=== PATIENT | female | born 1935 | race Caucasian/White ===

== ENCOUNTER 2018-11-26 14:00 | Inpatient (IN) | payer MEDICARE, BC ==
[~2018-11-26] VITALS: Ht 152.4 cm; Wt 69.4 kg
--- NOTE | 2018-11-26 14:00 | NUR ---
ARRIVED TO INTERMEDIATE UNIT AT [facility] FROM [facility]. PATIENT HAS BEEN SEEING THINGS, THINKS HER DECEISED 'S PICTURE IS TAKING TO HER. HER MAY, OF THIS YEAR. SHE DOES NOT LIKE TO BE ALONE. SHE NOW LIVES IN [facility]. PATIENT IS ALERT AND ORIENTED TO NAME, PLACE, TIME. SHE DOES NOT UNDERSTAND WHY SHE IS HERE. SHE STATES SHE IS A DNR FOR CODE STATUS. CODE WORD: AUGUSTINE. HER DAUGHTER'S NEED TO BE CALLED AND GIVEN CODE, PATIENT GAVE PERMISSION. HER DOCTOR IS DR. URI MADERA.
[2018-11-26] MEDS ORDERED: ATIVAN0.5 MG (18:38)
[2018-11-26] MEDS ORDERED: ALEVE220 MG PO ×2 (18:42→18:54)
[2018-11-26] MEDS ORDERED: VITAMIN D3400 UNI1 PO (18:50)
[2018-11-26] MEDS ORDERED: UNITHROID100 MCG (18:51)
[2018-11-26] MEDS ORDERED: CALCIUM 250+D T1 TAB PO (18:52)
[2018-11-26] MEDS ORDERED: ALEVE220 MG (18:55)
--- NOTE | 2018-11-26 23:29 | NUR ---
PATIENT IS CONFUSED, COOPERATIVE, NO MEDS GIVEN ON THIS SHIFT. WILL FOLLOW POC
[2018-11-27 02:48] VITALS: BP 139/78; BMI 24.7
[2018-11-27 06:12] LABS: BASOPHILS 0.2 % (0-2); EOSINOPHILS 2.2 % (0-7); HEMATOCRIT 38.9 % (36.0-48.0); HEMOGLOBIN 12.9 g/dL (12-16); IMMATURE GRANULOCYTES 0.2 % (0-5); LYMPHOCYTES 46.2 % (15-50); MCH 28.7 pg (26.0-34.0); MCHC 33.2 g/dL (31.0-37.0); MCV 86.4 fL (80.0-100.0); MEAN PLATELET VOLUME 9.3 fL (7.4-10.4); MONOCYTES 8.8 % (2-11); NEUTROPHILS 42.4 % (40-80); PLATELET COUNT 218 10x3/uL (130-400); RDW 12.3 % (11.5-14.5); WBC 5.8 10x3/uL (4.8-10.8)
[2018-11-27 07:30] LABS: ALBUMIN 3.2 g/dL (3.4-5.0); ALKALINE PHOSPHATASE 75 U/L (46-116); ALT (SGPT) 14 U/L (10-68); CALC OSMOLALITY 285 mosm/kg (275-300); CALCIUM 8.9 mg/dL (8.5-10.1); CARBON DIOXIDE 30.5 mmol/L (21.0-32.0); CHLORIDE - SERUM 107 mmol/L (98-107); CHOL - HDL RATIO 2.8 ratio (2.3-4.1); CHOLESTEROL, TOTAL 176 mg/dL (0-200); CREATININE - SERUM 0.7 mg/dL (0.6-1.3); GLUCOSE 99 mg/dL (74-106); HDL CHOLESTEROL 63 mg/dL (32-96); LDL CHOLESTEROL 95 mg/dL (0-100); LDL-HDL RATIO 1.5 ratio (1.5-3.5); POTASSIUM - SERUM 4.1 mmol/L (3.5-5.1); PROTEIN - SERUM 6.1 g/dL (6.4-8.2); SODIUM 142 mmol/L (136-145); THYROID STIMULATING HORMONE 0.39 uIU/mL (0.36-3.74); TRIGLYCERIDE 92 mg/dL (30-200); UREA NITROGEN 20 mg/dL (7-18); eGFR NON AFRICAN AMERICAN 85 mL/min (90-120)
[2018-11-27 09:12] VITALS: BMI 24.7
[2018-11-27 09:55] VITALS: BMI 24.7
[2018-11-27 10:44] VITALS: BP 132/69
--- NOTE | 2018-11-27 14:10 | NUR ---
PATIENT DISCHARGED TO [facility] THIS SHIFT. PATIENT WAS IN GOOD MOOD AND HELPFUL. WILL FAX PAPERWORK TO FACILITY. MEDICATION LIST SENT WITH PATIENT.
--- NOTE | 2018-11-27 14:36 | NUR ---
SW SPOKE TO BOTH OF PT'S DTRS WITHIN AN HOUR OF EACH OTHER. CARTER STATED PSYCHIATRIST REPORTED PT DOES NOT MEET INPATIENT CRITERIA. SW GAVE DTRS BOTH RESOURCES FOR RECOMMENDED OUTPATIENT TREATMENT. CARTER GAVE DR FORTUNE AND OBW OUTPATIENT INFORMATION. BOTH DTRS VERBALIZED UNDERSTANDING.
[2018-11-27 16:39] VITALS: Ht 152.4 cm; Wt 69.4 kg
--- NOTE | 2018-11-28 15:14 | PSY ---
PATIENT NAME:JOE VASQUEZ MEDICAL RECORD: [id number] : 35 LOCATION:[id number] ADMISSION DATE: 11/26/18 ACCOUNT: [id number] PSYCHIATRIC EVALUATION DATE OF EVALUATION: 11/27/18 PSYCHIATRIC EVALUATION IDENTIFYING DATA: The patient is 83 years old and she is admitted to the hospital on a voluntary basis. CHIEF COMPLAINT: None. HISTORY OF PRESENT ILLNESS: The patient is referred to us by the [facility]. They indicate that she has been acting bizarrely. Apparently, the patient's in May. She says they were for 65 years, which would have made her 18 when they . He has and he in May as I mentioned. Since then, she has been understandably distressed and depressed. Her primary care doctor has put her on Ativan to help with some anxiety. The staff at the intermediate say that she has been talking to a picture of her as though he were alive and that someone saw her trying to feed the food to the picture. She emphatically denies that this happened. She lives in an independent housing area of this particular intermediate and I presume that is with the intention that, as time passes, if necessary, she can be transitioned to a higher level of care. She also is somewhat angry. She says that the staff at the intermediate told her that her primary care physician, Dr. Mora, ordered some lab work and that they needed to go and have that done. She says no one told her that she was being admitted to the hospital, let alone a psychiatric unit, and that she does not want to be here and would like to be discharged. Even though she is angry, it is reasonable, understandable, and controlled. She says she came here with just the clothing that she is wearing now. She says she has no makeup, cosmetics, toiletry, toothbrush, change of underwear, or any other clothing. She tells me that if they had told her, she needed to pack a bag. She would have known that they were not having her brought here for blood work and would not have refused to go if they had told her the truth. She denies neurovegetative depressive symptoms, denies that she would seek to harm herself, denies overt psychotic symptoms. She tells me that she has no psychiatric history. She says that several years ago, before her and they were living in their own home, that she heard music playing in the living room. Her heard it too and that the two of them went to the living room and it stopped. She says that that has happened twice, but that is the closest thing that she can come to to describing anything that would be delusional. The patient does not have any thoughts of harming herself or others. She does endorse a number of neurovegetative depressive symptoms and admits that she feels quite depressed. She tells me that her , whom she loved very much and they had a very happy marriage, in May and she is still upset by it. She says that many times, she will be alone and will think about him and begin to cry. She says that she does not have any thoughts of harming herself or others. PAST MEDICAL HISTORY: Relatively healthy given the fact that she is 83 years old. She does have a history of hypothyroidism and has had a number of surgeries including a rotator cuff, an appendectomy, a gallbladder surgery, and a hysterectomy. PAST PSYCHIATRIC HISTORY: None by her account. She has never had mental health issues or problems. She has never seen a psychiatrist and never been hospitalized on a psychiatric unit. ALLERGIES: PENICILLIN. CURRENT MEDICATIONS: Include Ativan, vitamin D, levothyroxine, calcium, and naproxen. FAMILY HISTORY: Noncontributory. SOCIAL HISTORY: The patient does not smoke. She does drink. When questioned about drinking, she says she will have a glass of wine several times a year. She has never drank more heavily than this. 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 She does have 2 daughters, both of whom are out of state. MENTAL STATUS EXAMINATION: The patient is awake, alert, and fully oriented. Her mood is euthymic. Her affect is appropriate. Thought processes are goal directed. Memory, concentration, and abstraction abilities are intact. She has no thoughts of harming herself or others and no overt psychotic symptoms. ASSETS: Supportive family members. LIABILITIES: Limited insight. 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 AXIS II: Deferred. AXIS III: Hypothyroidism and osteoarthritis. AXIS IV: Moderate. AXIS V: Global assessment of functioning is 55. PLAN: At this time, the patient shows no evidence of acute or direct dangerousness to herself or others and no psychotic symptoms. She states she was tricked into coming here, and given the circumstances, it appears she is correct. If they were bringing her to the hospital to be admitted, obviously they would have told her to pack a bag. I suspect she is being honest and truthful and that the staff did lie to her. She has no abnormalities on her mental status examination. The closest I can come is that she said the date was either November 25 or and then, when I told her it was 27 of November, she shook her head and understood. Everything else on her mental status exam is perfectly normal. She has normal memory, concentration, short-term memory, long-term memory, abstraction abilities; all are intact. She does not want to be here. In fact, she feels a little bit distressed given that last night, a male patient in the room next to her became very agitated and had to be restrained and given p.r.n. medication right outside her door. A woman down the estes repeatedly kept coming into her room thinking it was her room. All of this is very new to Mrs. Vasquez. She is distressed about being on a behavioral unit with such impaired and disruptive individuals and she wants to go home. She certainly does not come anything close to meeting criteria for involuntary commitment, and even having said that, I do not think whatever level of difficulty she is having even meet inpatient criteria. I believe that the staff at the intermediate when they called and made reports about these unusual symptoms of her talking to a picture of her and even trying to feed him food are probably true, but they are not things that the patient will admit to, or at least under the circumstances, she is unwilling to admit to them and there is no evidence of acute or direct dangerousness and no evidence that she needs this level of care. Based upon my evaluation, I am going to discharge her at her request. I am not going to make significant medication changes. I am going to refer her to an outpatient psychiatrist. Of course, if symptoms returned, intermediate should call us and talk to us about them. I have spoken to the nursing assoc about the deceptive behaviors of the intermediate in bringing the patient here and she is going to call and talk to their records administrator. TRANSINT:[id number] Voice Confirmation ID: [id number] DOCUMENT ID: [id number] LESLIE JUÁREZ MD at 1514 CC: [id number] DICTATION DATE: 11/27/18 1247 NETWORK RELAY TESTER: 11/27/18 1334 DIS IN 11/27/18 [place] [id number] [place] [id number]
== END 2018-11-27 13:30 | DRG 57 ==
LOC: D.PSYCH 14:00
PROVIDERS: ADMIT Psychiatry & Neurology Psychiatry; ATTEND Psychiatry & Neurology Psychiatry
DX: G30.1 Alzheimer's disease with late onset (principal); F32.0 Major depressive disorder, single episode, mild; E03.9 Hypothyroidism, unspecified; M19.90 Unspecified osteoarthritis, unspecified site; Z66 Do not resuscitate; E55.9 Vitamin D deficiency, unspecified